=== PATIENT | male | born 1985 | race Caucasian/White ===

== ENCOUNTER 2019-05-31 11:52 | Emergency (ER) | payer OTHER ==
[~2019-05-31] VITALS: Ht 185.4 cm; Wt 104.5 kg
[2019-05-31] MEDS ORDERED: KETOROLAC 30 MG/ML VIAL (J1885) IV ONE (12:15)
[2019-05-31] MEDS ORDERED: LIDOCAINE 5% (LIDODERM) PATCH TD ONE (12:15)
[2019-05-31] MEDS ORDERED: ACETAMINOPHEN 500 MG TAB PO ONE (12:15)
[2019-05-31] MEDS ORDERED: CYCLOBENZAPRINE 5MG TABLET PO ONE (12:15)
[2019-05-31 12:20] LABS: BASO # 0.1 10^3/uL (0.0-0.2); BASO % 0.9 % (0.0-1.0); EOS # 0.3 10^3/uL (0.0-0.5); HEMATOCRIT 45.6 % (42.0-52.0); HEMOGLOBIN 14.9 g/dl (13.5-17.5); LYMPH # 2.3 10^3/uL (1.5-5.0); LYMPH % 20.4 % (24.0-44.0); MEAN CORPUSCULAR HGB CONC 32.7 g/dl (32.0-36.5); MEAN CORPUSCULAR VOLUME 88.9 fl (80.0-96.0); MONO # 0.6 10^3/uL (0.0-0.8); MONO % 5.6 % (0.0-5.0); NEUTROPHILS # 7.6 10^3/uL (1.5-8.5); NEUTROPHILS % 69.4 % (36.0-66.0); PLATELET COUNT, AUTOMATED 328 10^3/uL (150-450); RED BLOOD COUNT 5.13 10^6/uL (4.30-6.10)
[2019-05-31 12:44] LABS: ALBUMIN 4.1 GM/DL (3.2-5.2); BILIRUBIN,DIRECT 0.1 MG/DL (0.0-0.2); BILIRUBIN,TOTAL 0.4 MG/DL (0.2-1.0); TOTAL PROTEIN 7.1 GM/DL (6.4-8.2)
--- NOTE | 2019-05-31 12:47 | REP ---
CT of the thoracic spine: Axial images are acquired helical scanning and are reformatted in sagittal and coronal projections: The thoracic vertebral body heights, interspacing alignment are normal. There is a compression fracture of the L1 vertebral body. There is no spondylolisthesis. The facets are normally aligned. The paravertebral soft tissues are unremarkable. Impression: There is no fracture or listhesis of the thoracic vertebra. There is a compression fracture of the L1 vertebral body. Electronically Signed by Valentin Soto MD 05/31/2019 12:39 P
--- NOTE | 2019-05-31 12:47 | REP ---
CT of the cervical spine without IV contrast: Axial images are acquired helical scanning and are reformatted in sagittal and coronal projections: The skull base, C1-C2 are unremarkable. Vertebral body heights, interspacing alignment are normal. The facets are normally aligned. The prevertebral soft tissues are unremarkable. There are no posterior element fractures. Impression: There is no fracture or listhesis Electronically Signed by Valentin Soto MD 05/31/2019 12:39 P
--- NOTE | 2019-05-31 12:49 | REP ---
CT of the lumbar spine: Axial images are acquired helical scanning and are reformatted in sagittal and coronal projections: There is grade 1 compression deformity of the L1 vertebral body with minimal retropulsion. Vertebral body heights, interspacing alignment are otherwise normal. There are no posterior element fractures. The facets are normally aligned. The sacroiliac articulations are unremarkable. Impression: Grade 1 compression deformity of the L1 vertebral body with minimal retropulsion. Electronically Signed by Valentin Soto MD 05/31/2019 12:41 P
--- NOTE | 2019-05-31 12:50 | REP ---
No chest, single AP view with the patient sitting: There are no comparison studies. The lung ward are clear. The cardiac size is normal. The ramila, mediastinum, and skeletal structures are unremarkable. Impression: Negative portable chest. Electronically Signed by Valentin Soto MD 05/31/2019 12:41 P
[2019-05-31] MEDS ORDERED: PROAAER10 INH (12:58)
[2019-05-31 13:45] VITALS: BP 115/59
[2019-05-31] MEDS ORDERED: NAPR-885 PO (13:48)
[2019-05-31] MEDS ORDERED: FAMO1TAB25 PO (13:48)
[2019-05-31] MEDS ORDERED: CYCL5TAB PO (13:48)
[2019-05-31] MEDS ORDERED: **NOTE PATIENT COMMENT** MISC XX SCH (21:00)
== END 2019-05-31 14:05 | disposition home or self-care (01) ==
LOC: M ED 11:52
DX: S32.019A Unspecified fracture of first lumbar vertebra, initial encounter for closed fracture (principal); V48.5XXA Car driver injured in noncollision transport accident in traffic accident, initial encounter; J45.909 Unspecified asthma, uncomplicated; Z79.51 Long term (current) use of inhaled steroids; Z79.899 Other long term (current) drug therapy
CPT/HCPCS: 71045; 72125; 72128; 72131; 80047; 80076; 85025; 93041; 94760; 96374; 99285; J1885

== ENCOUNTER 2020-10-15 16:56 | Emergency (ER) | payer OTHER ==
[~2020-10-15] VITALS: Ht 182.9 cm; Wt 99.2 kg
[~2020-10-15 16:56] MED LIST: CYCL5TAB PO; FAMO10TA50 PO; NAPR-885 PO; PROAAER10 INH
[2020-10-15 16:57] VITALS: BP 106/53
== END 2020-10-15 19:48 | disposition left against medical advice (07) ==
LOC: M ED 16:56
DX: Z53.21 Procedure and treatment not carried out due to patient leaving prior to being seen by health care provider (principal)